=== PATIENT | female | born 1950 | race African-American/Black ===

== ENCOUNTER 2024-08-01 12:14 | Emergency (ER) | payer OTHER ==
[~2024-08-01] VITALS: Ht 165.1 cm; Wt 60.0 kg
[2024-08-01] MEDS ORDERED: ONDANSETRON HCL 4MG/2ML INJ IV STA (12:51)
[2024-08-01] MEDS ORDERED: MORPHINE SULFATE 4 MG/ML INJ (FOR IV/IM USE) IV STA (12:51)
[2024-08-01] MEDS: SODIUM CHLORIDE 0.9% 1,000 ML IV ONE (13:20)
[2024-08-01] MEDS: ONDANSETRON HCL 4MG/2ML INJ IV NR (13:35)
[2024-08-01] MEDS: MORPHINE SULFATE 4 MG/ML INJ (FOR IV/IM USE) IV STA (13:35)
[2024-08-01] MEDS: ONDANSETRON HCL 4MG/2ML INJ IV STA (15:23)
[2024-08-01] MEDS: ETOMIDATE 2MG/ML 10ML VIAL IV ONE (15:24)
[2024-08-01] MEDS: MORPHINE SULFATE 4 MG/ML INJ (FOR IV/IM USE) IV NR (15:31)
[2024-08-01] MEDS: ONDANSETRON HCL 4MG/2ML INJ ONE (15:41)
[2024-08-01 16:30] VITALS: O2SAT 97
[2024-08-01 18:30] VITALS: BP 116/69; PULSE 93; RESP 11; TEMP 36.8; O2SAT 97
== END 2024-08-01 18:50 | disposition home or self-care (01) ==
LOC: ER 12:14
DX: S42.91XA Fracture of right shoulder girdle, part unspecified, initial encounter for closed fracture (principal); S43.004A Unspecified dislocation of right shoulder joint, initial encounter; W19.XXXA Unspecified fall, initial encounter; Y93.89 Activity, other specified; Y92.89 Other specified places as the place of occurrence of the external cause; Y99.8 Other external cause status
CPT/HCPCS: 73030; 73200; 23650; 99152; 99285; J3490; J2405; J2270; J7030; Z7610 ×3; A4565; A4606